=== PATIENT | female | born 1955 | race African-American/Black ===

== ENCOUNTER 2019-11-18 13:26 | Emergency (ER) | payer SELFPAY ==
[~2019-11-18] VITALS: Ht 172.7 cm; Wt 107.7 kg
[2019-11-18 13:39] VITALS: Ht 172.7 cm; Wt 107.7 kg
[2019-11-18 17:44] VITALS: BP 167/87
== END 2019-11-18 17:44 | disposition home or self-care (01) ==
LOC: D.ER 13:26
DX: S01.511A Laceration without foreign body of lip, initial encounter (principal); S00.531A Contusion of lip, initial encounter; Y04.2XXA Assault by strike against or bumped into by another person, initial encounter; Y93.9 Activity, unspecified; Y92.9 Unspecified place or not applicable; I10 Essential (primary) hypertension; Z72.0 Tobacco use